=== PATIENT | female | born 1970 | race Caucasian/White ===

== ENCOUNTER 2017-11-06 21:42 | Emergency (ER) | payer BC, OTHER ==
[~2017-11-06] VITALS: Ht 160 cm; Wt 81.7 kg
[~2017-11-06 21:42] MED LIST: ALDACTONE25 MG PO; ALLEGRA180 MG PO; DESYREL150 MG PO; EXCEDRIN CAPLE1 EACH PO; HYCET 7.5 MG-3473 ML PO; LAMICTAL PO; LAMICTAL200 MG PO; LEVAQUIN 500 M500 MG PO; ONDANSETRON HCL4 M2 PO; PRILOSEC 20 MG20 MG PO; PRILOSEC40 MG PO; PROZAC 20 MG20 M1 PO; PROZAC20 MG PO; RESTORIL7.5 MG PO; SPIRONOLACTONE25 M1 PO; SPIRONOLACTONE50 MG PO; ZOFRAN ODT4 MG
[2017-11-06 21:47] VITALS: BP 129/83
[2017-11-06] MEDS ORDERED: VALTREX 500 MG500 M1 PO (21:55)
[2017-11-06] MEDS ORDERED: TRAZODONE HCL100 MG PO (21:55)
[2017-11-06 22:04] LABS: URINE BILIRUBIN NEGATIVE (Negative); URINE BLOOD NEGATIVE (Negative); URINE CLARITY CLEAR; URINE COLOR YELLOW; URINE GLUCOSE-RANDOM* NEGATIVE (Negative); URINE KETONES 1+ (Negative); URINE LEUKOCYTES NEGATIVE (Negative); URINE NITRITE POSITIVE (Negative); URINE PROTEIN (DIPSTICK) NEGATIVE (Negative); URINE UROBILINOGEN 0.2 E.U./dl (0.2-1.0)
[2017-11-06 22:18] LABS: BACTERIA >30 Many /HPF (None Seen); SQUAMOUS 4-10 Moderate /LPF (0-3); URINE RBC 0-2 Rare /HPF (0-2); URINE WBC 0-5 Rare /HPF (0-5)
[2017-11-06 22:19] LABS: CASTS None Seen /LPF (None Seen); CRYSTALS None Seen /LPF (None Seen)
[2017-11-06] MEDS ORDERED: KEFLEX500 M1 PO (22:25)
[2017-11-06] MEDS ORDERED: NEOMYC-POLYM-DEX5 ML OPHTHALMIC (22:26)
[2017-11-06] MEDS ORDERED: OSELB75 PO (22:32)
== END 2017-11-06 22:32 | disposition home or self-care (01) ==
LOC: ER 21:42
PROVIDERS: Physician Assistant
DX: N39.0 Urinary tract infection, site not specified (principal); B34.9 Viral infection, unspecified; B30.9 Viral conjunctivitis, unspecified; K21.9 Gastro-esophageal reflux disease without esophagitis; Z90.49 Acquired absence of other specified parts of digestive tract